=== PATIENT | female | born 1995 | race African-American/Black ===

== ENCOUNTER 2023-09-13 13:07 | Emergency (ER) | payer MEDICAID, SELFPAY ==
[2023-09-13 13:25] VITALS: BP 100/73; PULSE 68; RESP 16; TEMP 37.1; O2SAT 100
--- NOTE | 2023-09-13 13:39 | ED.HA ---
HPI - Headache General Chief Complaint: Headache Stated Complaint: feeling faint,SANDERS right side Time Seen by Provider: 09/13/23 13:39 Source: patient Mode of arrival: ambulatory Limitations: no limitations History of Present Illness HPI Narrative: 28-year-old female presents with complaint worst headache ever for the past 3 days. Took Tylenol yesterday to treat her pain with no relief headache. Has not tried any other [id number] medications to treat her pain. Denies URI symptoms. Today patient states that she feels numb all over . Constantly feels like she is going to pass out and earlier today had blurry vision. Reports headache is to right side forehead and behind right eye. No vision changes at that time. Complaint of nausea but has not vomited. Patient states she called her primary care physician for appointment and was told to go to the ER due to her symptoms. Patient states she does not want to sit at the hospital all day. All systems reviewed and negative except as noted above. Review of Systems Review of Systems: CONSTITUTIONAL: Denies fever, chills, or sweats. EYES: Denies redness, or discharge. Reports blurry vision. ENT: Denies rhinorrhea, congestion, sore throat, or otalgia. CARDIOVASCULAR: Denies chest pain, palpitations, or edema. RESPIRATORY: Denies cough or dyspnea. GASTROINTESTINAL: Denies abdominal pain. Reports nausea. Denies vomiting, or diarrhea. GENITOURINARY: Denies dysuria or hematuria. SKIN: Denies rash or itching. MUSCULOSKELETAL: Denies back pain, joint pain, or myalgia. NEUROLOGIC: Reports headache. Denies numbness, or weakness. PSYCHIATRIC: Denies anxiety or depression. All other systems reviewed are negative, except as documented in HPI. PMFSH Comments At time of signature, agree with nursing past medical, surgical, social and family history. There is no relevant family history pertinent to the presenting complaint. Exam Narrative: GENERAL: This is a well-nourished, well-developed patient, in no apparent distress. HEAD: normocephalic, atraumatic. EYES: PERRL. Sclera clear/white. Vision is grossly intact. extraocular motions intact EARS: External ears normal, auditory canals clear and without drainage, TMs normal without perforation. Hearing grossly intact. NOSE: External nose normal with no obvious nasal discharge, nares without redness, no rhinorrhea. THROAT: Mucous membranes moist, posterior pharynx clear. NECK: Neck supple, non-tender without lymphadenopathy, masses or thyromegaly. CARDIOVASCULAR: Regular rate and rhythm without murmurs, gallops, or rubs. RESPIRATORY: Clear to auscultation. Breath sounds equal bilaterally. No wheezes, rales, or rhonchi. SKIN: warm, Dry, intact with no suspicious lesions or rash, good texture and turgor. NEURO: awake, alert, and oriented to person, place and time. There were no obvious focal neurologic abnormalities. EXTREMITIES: No joint tenderness, effusion, or edema noted. Course Course Level of Care: Express Care Visit Vital Signs Vital signs: Vital Signs Temperature 37.1 C 09/13/23 13:25 Pulse Rate 68 09/13/23 13:25 Respiratory Rate 16 09/13/23 13:25 Blood Pressure 100/73 09/13/23 13:25 Pulse Oximetry 100 09/13/23 13:25 Oxygen Delivery Room Air 09/13/23 13:25 Temperature 37.1 C 09/13/23 13:25 Pulse Rate 68 09/13/23 13:25 Respiratory Rate 16 09/13/23 13:25 Blood Pressure 100/73 09/13/23 13:25 Pulse Oximetry 100 09/13/23 13:25 Oxygen Delivery Room Air 09/13/23 13:25 reviewed MDM - Headache MDM Narrative Medical decision making narrative: recommend patient transfer to ER for further evaluation of her symptoms. Patient did not feel was necessary, stated she needed to sheepskin pickler her kids at 3:00 p.m. No neurological deficits at this time. Patient is aware of diagnosis, understands and agrees to treatment plan. Anticipatory guidance given. Patient agrees to follow-up as
[2023-09-13 13:47] LABS: Glucose Point of Care 144 mg/dl (65-105)
== END 2023-09-13 13:48 | disposition left against medical advice (07) ==
PROVIDERS: Emergency Provider Nurse Practitioner Family
DX: R51.9 Headache, unspecified (principal); J45.909 Unspecified asthma, uncomplicated; Z86.14 Personal history of Methicillin resistant Staphylococcus aureus infection
CPT/HCPCS: 82948; 99203; G0463

== ENCOUNTER 2023-09-13 18:06 | Emergency (ER) | payer MEDICAID, SELFPAY ==
--- NOTE | ~2023-09-13 | CT_ITS ---
CT brain wo con Ordering provider: Naseem Nichols MD History: 28 years Female with . headache . Comparison: None. Technique: CT of the head without contrast. Radiation reduction technique utilized. DLP 605.33 mGy-cm. FINDINGS: BRAIN PARENCHYMA AND CSF SPACES: No midline shift, mass effect or hemorrhage. The brain parenchyma a nd CSF spaces are otherwise normal. VISUALIZED PARANASAL SINUSES: Well aerated. MASTOIDS: Well aerated. BONES: The bones appear intact. SOFT TISSUES: Visualized nasopharynx is normal. Superficial soft tissues are normal. IMPRESSION: No acute intracranial findings. Reviewed, dictated and finalized at location A.
[2023-09-13 18:27] VITALS: BP 119/69; PULSE 76; RESP 16; TEMP 36.9; O2SAT 100
[2023-09-13] MEDS: SODIUM CHLORIDE 0.9% IV 1,000 ML 999 ML IV CONT (19:45)
[2023-09-13] MEDS: KETOROLAC 15 MG/ML VIAL (*BKC) IV PUSH (19:46)
[2023-09-13] MEDS: PROCHLORPERAZINE EDISYLATE 10 MG/2 ML VIAL IV PUSH (19:46)
[2023-09-13] MEDS: diphenhydrAMINE HCl INJ 50 MG/ML VIAL IV PUSH (19:46)
[2023-09-13 20:01] LABS: Basophils Percent Auto 0.6 % (0.2-1.2); Eosinophils Absolute Auto 0.1 K/mm3 (0-0.3); Eosinophils Percent Auto 2.4 % (0-4.4); Hematocrit 39.4 % (37.0-47.0); Hemoglobin 12.7 g/dL (12.0-15.0); Immature Granulocyte Absolute 0.01 K/mm3 (0.00-0.031); Immature Granulocyte Percent A 0.2 % (0-0.5); Lymphocytes Percent Auto 45.1 % (18.3-44.2); Mean Corpuscular HGB Conc 32.2 g/dl (32-36); Mean Corpuscular Hemoglobin 27.5 pg (26-34); Mean Corpuscular Volume 85.3 fl (80-100); Mean Platelet Volume 10.3 fl (7.4-10.4); Monocytes Absolute Auto 0.5 K/mm3 (0.1-0.6); Monocytes Percent Auto 8.5 % (2.6-8.5); Neutrophils Absolute Auto 2.3 K/mm3 (1.3-6.7); Neutrophils Percent Auto 43.2 % (45.5-73.1); Platelet Count Result 315 k/mm3 (150-375); Red Blood Count 4.62 M/mm3 (4.2-5.4); Red Cell Distribution Width 14.1 % (11.5-14.5); White Blood Count 5.3 K/mm3 (4.5-10.0)
[2023-09-13 20:11] LABS: Alanine Aminotransferase 31 U/L (6-35); Albumin Level 4.3 g/dL (3.5-5.1); Alkaline Phosphatase 65 U/L (38-126); Anion Gap 9 mmol/L (4-12); Aspartate Amino Transferase 32 U/L (14-36); Bilirubin,Total 0.4 mg/dL (0.2-1.3); Blood Urea Nitrogen 12 mg/dL (7-17); Calcium 9.2 mg/dL (8.4-10.2); Carbon Dioxide 27 mmol/L (22-30); Chloride 103 mmol/L (98-107); Estimated CRCL calculation 108 ml/min; Estimated Glomerular Filt Rate > 60; Glucose 125 mg/dL (65-110); Potassium 4.3 mmol/L (3.4-5.0); Sodium 139 mmol/L (137-145)
--- NOTE | 2023-09-13 20:26 | ED.GENADULT ---
HPI - General Adult General Chief complaint: Headache Stated complaint: headache Time Seen by Provider: 09/13/23 19:13 History of Present Illness HPI narrative: Patient is a 28-year-old female who presents emergency department with chief complaint of headache. Patient reports that she recently started her. This had a very heavy. This her 2nd 1 since she stopped . Patient also reports she has had a tubal ligation. Patient reports that since her period started she has been having headaches reports that she has also felt lightheaded worse with standing. Patient reports that she is going through a pad about every hour the patient denies fever denies sore throat denies chest pain shortness of breath abdominal pain. Related Data Home Medications Medication Instructions Recorded Confirmed albuterol sulfate 1.25 mg/3 mL 1.25 mg inhalation Q4H 09/13/23 09/13/23 solution for nebulization albuterol sulfate 90 mcg/actuation 2 puff inhalation QID PRN SOB 09/13/23 09/13/23 aerosol inhaler fluticasone propionate 110 1 puff inhalation DAILY 09/13/23 09/13/23 mcg/actuation HFA aerosol inhaler Allergies Allergy/AdvReac Type Severity Reaction Status Date / Time No Known Allergies Allergy Verified 09/13/23 14:45 Review of Systems Review of Systems: A 10 system review of systems was completed on the patient and is negative except for what is stated in the HPI. Nursing and ancillary documentation was reviewed. Exam Narrative: GENERAL: Well-appearing, well-nourished, and in no acute distress. HEAD: Normocephalic, atraumatic. EYES: PERRLA and EOMI. ENT: Nares clear, no rhinorrhea or epistaxis. Mucous membranes moist. NECK: Supple. No nuchal rigidity CHEST: Clear to auscultation. No respiratory distress. HEART: Regular rate and rhythm. No murmur heard. Normal peripheral pulses. ABDOMEN: Soft, nontender, nondistended, normal active bowel sounds. EXTREMITIES: Normal range of motion. No edema. SKIN: Warm, dry, no rash. NEURO: No focal deficits. Alert and oriented x3. GCS 15 PSYCH: Normal mood and affect. Course Vital Signs Vital signs: Vital Signs Temperature 36.9 C 09/13/23 18:27 Pulse Rate 76 09/13/23 18:27 Respiratory Rate 16 09/13/23 18:27 Blood Pressure 119/69 09/13/23 18:27 Pulse Oximetry 100 09/13/23 18:27 Oxygen Delivery Room Air 09/13/23 18:27 Temperature 36.9 C 09/13/23 18:27 Pulse Rate 76 09/13/23 18:27 Respiratory Rate 16 09/13/23 18:27 Blood Pressure 119/69 09/13/23 18:27 Pulse Oximetry 100 09/13/23 18:27 Oxygen Delivery Room Air 09/13/23 18:27 Medical Decision Making MDM Narrative Medical decision making narrative: The includes migraine headache, anemia, dehydration, UTI, electrolyte abnormality CT head showed no acute abnormality The patient received IV fluids Benadryl Toradol and Compazine. The patient is feeling much better at this time and will be discharged home. Laboratory studies did show the patient had a hemoglobin of 12.7 electrolytes were within normal limits urinalysis showed no evidence UTI Vital Signs Vital Signs: Vital Signs Temperature 36.9 C 09/13/23 18:27 Pulse Rate 76 09/13/23 18:27 Respiratory Rate 16 09/13/23 18:27 Blood Pressure 119/69 09/13/23 18:27 Pulse Oximetry 100 09/13/23 18:27 Oxygen Delivery Room Air 09/13/23 18:27 Temperature 36.9 C 09/13/23 18:27 Pulse Rate 76 09/13/23 18:27 Respiratory Rate 16 09/13/23 18:27 Blood Pressure 119/69 09/13/23 18:27 Pulse Oximetry 100 09/13/23 18:27 Oxygen Delivery Room Air 09/13/23 18:27 Lab Data 09/13/23 19:50 09/13/23 19:50 Labs: Lab Results 09/13/23 09/13/23 Range/Units 19:50 20:49 WBC 5.3 (4.5-10.0) K/mm3 RBC 4.62 (4.2-5.4) M/mm3 Hgb 12.7 (12.0-15.0) g/dL Hct 39.4 (37.0-47.0) % MCV 85.3 (80-100) fl MCH 27.5 (26-34) pg MCHC 32.2
[2023-09-13 20:59] LABS: Appearance Urine Clear (Clear); Bacteria Urine None Seen /hpf; Bilirubin Urine Negative (Negative); Blood Urine 1+ (Negative); Color Urine Yellow (Yellow); Glucose Urine UA Negative (Negative); Ketones Urine Negative (Negative); Leukocyte Esterase Ur Negative LEU/UL (Negative); Nitrate Urine Negative (Negative); Non Pathogenic Casts 0-2; Protein Urine Negative (Negative); RBC Urine 0-2 /hpf (0-2); Specific Grav Ur 1.011 (1.001-1.035); Squamous Epithelial Cell Urine None Seen /hpf (Few); WBC Urine 0-5 /hpf (0-3); pH Urine 7.5 (5.0-9.0)
[2023-09-13 21:07] LABS: Add Urine Microscopic? YES
[2023-09-13 21:30] VITALS: BP 126/74; PULSE 78; RESP 19; O2SAT 98
== END 2023-09-13 21:31 | disposition home or self-care (01) ==
PROVIDERS: Emergency Provider Emergency Medicine
DX: R51.9 Headache, unspecified (principal); Z79.899 Other long term (current) drug therapy
CPT/HCPCS: 36415; 70450; 80053; 81001; 81025; 82948; 83735; 85025; 96361; 96374; 96375; 99284; J0780; J1200; J1885; J7030

== ENCOUNTER 2023-12-31 09:20 | Emergency (ER) | payer OTHER, SELFPAY ==
[2023-12-31 09:25] VITALS: BP 155/68; PULSE 91; RESP 16; TEMP 36.6; O2SAT 96
[2023-12-31 09:44] LABS: BEDSIDEPREGUCG Negative (Negative)
[2023-12-31 09:56] LABS: Add Urine Microscopic? YES; Appearance Urine Cloudy (Clear); Bacteria Urine 3+ /hpf; Bilirubin Urine Negative (Negative); Blood Urine Negative (Negative); Color Urine Yellow (Yellow); Glucose Urine UA Negative (Negative); Ketones Urine Negative (Negative); Leukocyte Esterase Ur Negative LEU/UL (Negative); Nitrate Urine Negative (Negative); Non Pathogenic Casts 0-2; Protein Urine Negative (Negative); RBC Urine 0-2 /hpf (0-2); Specific Grav Ur 1.025 (1.001-1.035); Squamous Epithelial Cell Urine Moderate /hpf (Few); WBC Urine 0-5 /hpf (0-3); pH Urine 6.5 (5.0-9.0)
--- NOTE | 2023-12-31 10:19 | ED.FEMALEGU ---
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 Her daughter was born in 10 months ago and she had a tubal ligation at the same time as her C section. Her cycle resumed in May and was normal and she had a normal period in June as well as Juene but that was her LMP. Her cycle had previously been 5 days. After the of her son, her cycle was 3 days with medium flow. Her cycles after this /delivery had been 7 days and heavy. 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 She has been having temperature issues (feels hot now), has had subjective weight gain, hair thinning, and breast tenderness as well as though not breast feeding any longer. No dysuria or hematuria but has urinary urgency/frequency which she states is new/not chronic. Related Data Home Medications Medication Instructions Recorded Confirmed albuterol sulfate 1.25 mg/3 mL 1.25 mg inhalation Q4H 09/13/23 09/13/23 solution for nebulization albuterol sulfate 90 mcg/actuation 2 puff inhalation QID PRN SOB 09/13/23 09/13/23 aerosol inhaler fluticasone propionate 110 1 puff inhalation DAILY 09/13/23 09/13/23 mcg/actuation HFA aerosol inhaler Allergies Allergy/AdvReac Type Severity Reaction Status Date / Time No Known Allergies Allergy Verified 09/13/23 14:45 PMFSH Past Medical History Medical History History of miscarriage x1 Surgical History Surgical History (Updated 01/01/24 @ 04:51 by Mago Scott MD) History of 2 sections first one for 36wk GA son; last one in January 2023 Hx of tubal ligation January 2023 Social History Social History Living arrangements: with family Exam Narrative: GENERAL: Well-appearing, well-nourished, and in no acute distress. Nontoxic appearing. HEAD: Normocephalic, atraumatic. EYES: Non injected, non icteric ENT: Nares clear, no rhinorrhea or epistaxis. NECK: Supple. CHEST: Speaking in full sentences. No respiratory distress. HEART: Regular rate and rhythm. . ABDOMEN: Soft, nondistended. Obese. EXTREMITIES: Normal range of motion. No lower extremity edema. SKIN: Warm, dry, no rash. NEURO: No focal deficits. Alert and oriented x3. PSYCH: Normal mood and affect. Course Vital Signs Vital signs: Vital Signs Temperature 97.8 F 12/31/23 09:25 Pulse Rate 91 12/31/23 09:25 Respiratory Rate 16 12/31/23 09:25 Blood Pressure 155/68 H 12/31/23 09:25 Pulse Oximetry 96 12/31/23 09:25 Temperature 97.8 F 12/31/23 09:25 Pulse Rate 91 12/31/23 09:25 Respiratory Rate 16 12/31/23 09:25 Blood Pressure 155/68 H 12/31/23 09:25 Pulse Oximetry 96 12/31/23 09:25 MDM - Female Genitourinary MDM Narrative Medical decision making narrative: Patient presents with amenorrhea. Her menstrual cycle did resume 6-7 months after the of her daughter and she had 3 normal cycles but her LMP was in July. In the emergency department she is afebrile with vital signs notable for hypertension. TSH normal. Her urine does have bacteria and, given she has been having urinary urgency and frequency that is new, not chronic, reasonable to treat. First dose antibiotic given in the ED. Rest of the course prescribed. Advised to follow up either with her previous ObGyn or, alternatively provided contact information for local one. Discharged in stable condition. Differential Diagnosis Differential diagnosis: Likely urinary tract infection and other (pituitary axis dysfunction/thyroid issue; ) Lab Data Attestation: I reviewed the patient's lab results. Labs: Lab Results 12/31/23 12/31/23 12/31/23 Range/Units 09:42 09:43 10:33 TSH 1.350 (0.465-4.680) uIU/mL Beta HCG, Quant < 2.39 mIU/ML Urine Color Yellow (Yellow) Urine Appearance Cloudy H (Clear) Urine pH 6.5 (5.0-9.0) Ur Specific Reva 1.025 (1.001-1.035) Urine Protein Negative (Negative) mg/dL Urine Glucose (UA) Negative (Negative) mg/dL Urine Ketones Negative (Negative) mg/dL Ur Blood (Man) Negative (Negative) Urine Nitrate Negative (Negative) Urine Bilirubin Negative (Negative) Urine Urobilinogen 1.0 (<2.0) mg/dL Leukocyte Esterase Rfl Negative (Negative) ANTONIETA/UL Urine RBC 0-2 (0-2) /hpf Urine WBC 0-5 (0-3) /hpf Ur Squamous Epith Cells Moderate (Few) /hpf Urine Bacteria 3+ H /hpf Urine Casts 0-2 POC Urine HCG, Qual Negative (Negative) Discharge Plan Discharge Clinical Impression: Bacteriuria, Amenorrhea Patient Disposition: Home, Self-Care Condition: Stable Instructions: Antibiotic Form, Urinary Tract Infection in Women (ED) Additional Instructions: Your urine and blood test were negative. Your TSH/ thyroid function was normal. You did have some bacteria in your urine and because you are having urgency and frequency will treat as a urinary tract infection. Your 1st dose of antibiotic was given in the emergency department with the rest of the course prescribed. Follow-up with your ObGyn if you continue to not have a period as they may recommend a further work up or to trial hormones/medications to restart your menstrual cycle. If you are unable to see your previous OBGYN in [place], the name of another one is listed below. return to the emergency department with any new or worsening symptoms. Prescriptions: New sulfamethoxazole-trimethoprim [Bactrim DS] 800-160 mg tablet 1 tablet PO Q12H 5 Days Qty: 9 0RF Rx Instructions: received first dose in ED 11/3 AM No Action albuterol sulfate 1.25 mg/3 mL Solution For Nebulization 1.25 mg INHALATION Q4H albuterol sulfate [ProAir HFA] 90 mcg/actuation Hfa Aerosol Inhaler 2 puff INHALATION QID PRN (Reason: SOB) fluticasone propionate [Flovent] 110 mcg/actuation Hfa Aerosol Inhaler 1 puff INHALATION DAILY Follow-up/Referrals: Karl Carranza MD [Physician] - (GOLD ASSAYER) PHYSICIAN,STATUE CARVER [Primary Care Provider] - Stand Alone Forms: Work/School Release IP Time of Disposition: 11:43
[2023-12-31 11:08] LABS: Beta HCG Quantitative < 2.39 mIU/ML
[2023-12-31] MEDS: SULFAMETHOXAZOLE/TRIMETHOPRIM 800/160 MG DS TABLET 1 TAB PO (11:59)
== END 2023-12-31 12:02 | disposition home or self-care (01) ==
PROVIDERS: Emergency Provider Student in an Organized Health Care Education/Training Program
DX: N91.2 Amenorrhea, unspecified (principal); R82.71 Bacteriuria
CPT/HCPCS: 36415; 81001; 81025; 84443; 84702; 99283; A9270

== ENCOUNTER 2024-01-29 18:23 | Emergency (ER) | payer OTHER, SELFPAY ==
[2024-01-29 18:27] VITALS: BP 133/81; PULSE 98; RESP 18; TEMP 36.4; O2SAT 100
--- NOTE | 2024-01-29 20:52 | PC.NURSE ---
Patient came up to intake desk and advised that she was leaving. Patient had a steady gait upon exiting ED.
== END 2024-01-29 21:37 | disposition left against medical advice (07) ==
DX: L02.411 Cutaneous abscess of right axilla (principal)
CPT/HCPCS: 99199

== ENCOUNTER 2024-11-09 00:27 | Emergency (ER) | payer OTHER, SELFPAY ==
--- OUTSIDE RECORDS SUMMARY | 2020-04-14 19:00 | XMS_ITS | Continuity of Care Document ---
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 [address] [address], [address] [address], [place], [place], [facility], . tel:[phone] Referring Provider: Karen Castro [address] [place] [address], [place], [place], [facility]. tel:[phone] Family History Family Member Type Diagnosis Age At Onset No Information Payers Payer name Insurance type Covered green party ID Authoriza tion(s) [facility] [id number] MEDICAID [facility] [id number] Social History Type Description Quantity Date Captured Comments Sex Female Smoking Status No Information Chief Complaint And Reason For Visit No Information Reason For Referral Reason For Referral No Information History Of Present Illness Encounter Date Complaint History Of Prese nt Illness No Information Functional Status Date Functional Assessmen t No Information Instructions Date Instruction Additional Infor mation No Information Assessments Type Assessment Date No Information Patient Care Teams Name Effective Dates (start - stop) Status Members No Information
[2024-11-09 00:29] VITALS: BP 124/69; PULSE 87; RESP 16; TEMP 36.6; O2SAT 99
--- OUTSIDE RECORDS SUMMARY | 2024-11-09 00:30 | XMS_ITS | Clinical Summary ---
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 Name Role Phone No, Physician Primary Care Provider [phone] Payal Zuniga MD Unavailable [phone] Allergies No known active allergies Medications fluticasone (FLOVENT HFA) 110 mcg/actuation inhaler inhale 1 puff by inhalation route 2 times every day 0 Inhaler 0 5 Active PNV with [id number]-EG 27 mg iron- 1 mg tablet Take 1 tablet by mouth daily 30 tablet 0 Active albuterol HFA (PROVENTIL HFA,VENTOLIN HFA,PROAIR HFA) 90 mcg/actuation inhaler Inhale 1-2 puffs every 6 (six) hours as needed for wheezing 1 g 2 Active acetaminophen 500 mg capsuleIndicati ons:Pain Take 2 capsules (1,000 mg total) by mouth every 6 (six) hours 60 tablet 1 3 Active oxyCODONE (ROXICODONE) 5 mg immediate release tabletIndicatio ns:Pain Take 1 tablet (5 mg total) by mouth every 4 (four) hours as needed for pain 20 tablet 3 Active ibuprofen (ADVIL,MOTRIN) 600 mg tablet Take 1 tablet (600 mg total) by mouth every 6 (six) hours as needed for pain 60 tablet 1 3 Active budesonide-form oteroL (SYMBICORT) 80-4.5 mcg/actuation inhaler Inhale 2 puffs 2 (two) times a day 4 Active famotidine (PEPCID) 20 mg tablet Take 1 tablet (20 mg total) by mouth nightly 3 Active doxycycline (VIBRAMYCIN) 100 mg capsule Take 1 tablet/capsule (100 mg total) by mouth 2 (two) times a day 60 tablet/capsul e 2 4 Active Active Problems Problem Noted Date Diagnosed Date 37 weeks gestation of 02/01/2023 Decreased movements in third trimester 07/2022 Previous section co mplicating , antepartum condition or complication 02/01/2023 Unwanted fertility 02/01/2023 Liveborn infant, of singleto n , born in hospital by delivery 02/01/2023 Costochondritis, acute 09/07/2017 Hidradenitis suppurativa 07/27/2012 Surgical History Surgery Date Site/Laterality Comments OTHER SURGICAL HISTORY 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 Asthma Family History Medical History Relation Name Comments No Known Problems Brother No Known Problems Cousin No Known Problems Daughter Asthma Father Asthma; No Known Problems Maternal Grandfather Diabetes type II Maternal Grandmother Poonam betes mellitus type 2; Other Maternal Grandmother Pulmona ry hypertension; Cause of : Pulmonary hypertension Asthma Mother Asthma; Diabetes type II Mother Diabetes me llitus type 2; Hyperlipidemia Mother Hyperlipidemi a; Diabetes type II Mother's Sister Diabetes mellitus type 2; No Known Problems Other No Known Problems Paternal Grandfather No Known Problems Paternal Grandmother No Known Problems Sister No Known Problems Son Diabetes Neg Hx Heart failure Neg Hx Hypertension Neg Hx Migraines Neg Hx Osteoarthritis Neg Hx Rashes / Skin problems Neg Hx Rheum arthritis Neg Hx Seizures Neg Hx Stroke Neg Hx Thyroid disease Neg Hx Relation Name Status Comments Brother Cousin Daughter Father Maternal Grandfather Maternal Grandmother Mother Mother's Sister Other Paternal Grandfather Paternal Grandmother Sister Son Social History Tobacco Use Types Packs/Day Years Used Date Smoking Tobacco: Former Smokeless Tobacco: Never Alcohol Use Standard Drinks/Week Comments No 0 (1 standard drink = 0.6 oz pur e alcohol) Personal Safety Answer Date Recorded Have you ever been in or are you currently in a harmful physical or emotional relationship or is someone making you feel afraid or unsafe? Denies 02/01/2023 Comments Unknown Sex and Gender Information Value Date Recorded Sex Assigned at Not on file Legal Sex Female 3:51 AM CAMP COUNSELOR Gender Identity Not on file Sexual Orientation Not on file Obstetrics History Para Term AB IAB SAB Ectopic Multiple Livin g Live Births 2 2 1 1 0 2 2 Date Outcome GA Total Labor Labor/2nd/3rd Weight Sex Type Anes PTL Diana A1 A5 Name Clin 2020 35w 0d M CS-LT ranv Epidur al Livin g Complications: Aubree eladio Hypertension,Premature Rupture of Membranes Delivery Location:Other 2022 Term 37w 3d 0h 03m 0h 03m 3.06 kg (6 lb 11.9 oz) F C-Sec tion Spinal N Livin g 8 9 Ke carter, Miguel Mcguire MD Complications:None Delivery Location:This [facility] ([facility]) Last Filed Vital Signs Vital Sign Reading Time Taken Comments Blood Pressure 131/77 02/04/2023 8:00 AM CAMP COUNSELOR Pulse 84 02/04/2023 8:00 AM CAMP COUNSELOR Temperature 36.6 C (97.9 F) 02/04/2023 8:00 AM CAMP COUNSELOR Respiratory Rate 18 02/04/2023 8:00 AM CAMP COUNSELOR Oxygen Saturation 99% 02/04/2023 8:51 AM CAMP COUNSELOR Inhaled Oxygen Concentration - - Weight 86.6 kg (191 lb) 02/01/2023 7:00 PM CAMP COUNSELOR Height 152.4 cm (5') 02/01/2023 7:00 PM CAMP COUNSELOR Body Mass Index 37.3 02/01/2023 7:00 PM CAMP COUNSELOR Plan of Treatment Health Maintenance Due Date Last Done Comments Cervical Cancer Screening 1997 Depression Screening 1997 Hepatitis C Screening 1997 Regular Well Visit/Exam 18-64 08/20/2015 Pneumococcal vaccine <65 (1 of 2 - PCV) 2016 Influenza Vaccine (#1) 2024 01/12/2012 DTaP/Tdap/Td Vaccine (8 - Td or Tdap) 02/12/2030 02/13/2020, 10/06/2008, 09/14/2001, Additional history exists Hepatitis B Screening Completed 1997, 998 Varicella Vaccines Completed 10/30/2007, 09/07/1998 HPV Vaccines Completed 01/19/2010, 11/27, 10/06/2008 Insurance [facility] CHOICE PLUS [facility] Advance Directives For more information, please contact: [phone] * Full Code (Latest Code Status on File) Date Activated Date Inactivated Comments 02/01/2023 10:19 PM 02/04/2023 3:34 PM * Full Code Date Activated Date Inactivated Comments 02/01/2023 4:48 PM 02/01/2023 10:19 PM Full CPR in case of cardiopulmonary arrest Care Teams Meatcutter Relationship Specialty Start Date End Date No, Physician PCP - General 02/15/17 Payal Zuniga MD [address] [place] [address] Consulting Physician Obstetrics and Gynecology 02/03/23
[2024-11-09 04:20] VITALS: BP 128/75
== END 2024-11-09 04:20 | disposition left against medical advice (07) ==
LOC: ANHED 04:17
PROVIDERS: Emergency Provider Emergency Medicine; PCP Emergency Medicine
DX: R42 Dizziness and giddiness (principal); E11.9 Type 2 diabetes mellitus without complications
CPT/HCPCS: 82948; 99199